=== PATIENT | male | born 1955 | race Caucasian/White ===

== ENCOUNTER 2020-04-23 11:07 | Inpatient (IN) | payer OTHER ==
[~2020-04-23] VITALS: Ht 182.9 cm; Wt 99.8 kg
--- NOTE | ~2020-04-23 | HC ---
[facility] [place] [address] [place] [address] CONSULTATION Name: SHANA RAMIREZ [facility] Room #: 439-P ADM IN M.R.#: [id number] Admission: 04/23/20 Attend Phys: Lana Ventura MD Discharge: Date of : 53 Report #: [id number] THIS REPORT FOR: cc: Barron Cadet MD, Keninde A. MD Deardorff, Valerie A. MD ~ DATE OF SERVICE: 04/24/2020 ORTHOPEDIC CONSULT NOTE REASON FOR CONSULTATION: Possible right septic elbow joint. 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 He reports on Friday about 2 a.m., waking up with right elbow pain that has progressively worsened. He denies fevers or chills. Reports it is painful to move. Denies numbness or tingling and the pain has worsened despite rest. He gives a history of a very similar episode 2-3 years ago with a sudden onset of increased pain and swelling. He had an aspiration, but did not have any surgery, was in the hospital for 4 days. Apparently, at that point, they could not figure out what was going on for the patient and he was dismissed 4 days later, but he reports at that point, his elbow was essentially normal. He denies a history of gout or any other extremity complaints. REVIEW OF SYSTEMS: MUSCULOSKELETAL: Denies other extremity complaints. NEUROLOGIC: Denies numbness or tingling. PAST MEDICAL HISTORY: Significant for hypertension, osteoarthritis. PAST SURGICAL HISTORY: Right total knee arthroplasty with some type of reconstruction, appendectomy, tonsillectomy, right thumb and index finger surgery, left total knee arthroplasty. ALLERGIES: No known drug allergies. SOCIAL HISTORY: He is right hand dominant. 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 Denies smoking or drinking alcohol. MEDICATIONS: Losartan, metoprolol, hydrocodone. LABORATORY STUDIES: Done on 04/24/2020 show white blood cell count 10.8, hemoglobin 11.3, hematocrit 34.8, platelet count 204. ESR done on 04/23/2020 is 14, INR is 1. Chemistry is grossly normal on ____ 04/23/2020 showed a CRP within normal range at 7.9. Fluid analysis from the elbow showed 23,000 white blood cell count and CPPD crystals were noted. His COVID negative. [facility] [address] [place] [address] [facility] #: [facility]-P ADM IN M.R.#: [id number] Admission: 04/23/20 Attend Phys: Lana Ventura MD Discharge: Date of : 53 Report #: [id number] PHYSICAL EXAMINATION: GENERAL: The patient is alert and oriented, interacts appropriately. He is a well-developed, well-nourished male with normal affect. He ____ conversation well and answers questions appropriately. He is in his hospital bed. VITAL SIGNS: Most recent vital signs show temperature of 37.7, respiratory rate 12, blood pressure 139/81, pulse oximetry is 96% on room air. EXTREMITIES: Examination of both upper extremities, grossly normal motor and stability and strength. Skin is clean, dry and intact with the exception of a puncture wound on the lateral aspect of his right elbow. Focused exam of the right upper extremity shows a 2+ radial pulse. No tenderness to palpation of the hand. There is moderate edema at the elbow with no erythema. It appears to be localized to the elbow joint. There is Betadine from the aspiration on the elbow. He has significant tenderness to palpation at the radiocapitellar joint. He has minimal motion. It is moderately painful. His left elbow motion is limited with approximately -20 degrees of extension. He reports this is chronic and bilateral. There is pain with elbow range of motion. RADIOGRAPHS: AP and lateral of the right elbow shows significant arthritic changes. IMPRESSION AND PLAN: Right elbow effusion and pain, most likely pseudogout given the lack of fever, lack of elevated white blood cell count, sed rate or ESR and a positive CPPD crystals in his elbow as well as a prior history of 4 days of pain with complete resolution. We will await culture results. Antibiotics are appropriate as well. Medical team may consider steroids or high dose NSAIDs. I will continue to follow along. Questions were encouraged and answered to the best of my ability. By: [id number] Cailin Jeronimo MD /nt
[~2020-04-23 11:07] MED LIST: COZAAR 25 MG TA25 M1 PO; GLUCOPHAGE XR500 MG; IBUPROFEN 600600 M1 PO; INDOMETHACIN 2525 MG PO; KEFLEX500 MG PO; LISINOPRIL10 MG PO; LOPRESSOR50 PO; NORCO 10-325 T1 EACH PO; NORCO 5-325 TA1 EACH PO
[2020-04-23 12:30] LABS: ABSOLUTE NEUTROPHILS 9.1 thou/uL (1.4-8.2); BASOPHILS 0.1 % (0.0-2.0); EOSINOPHILS 0.4 % (0.0-3.0); HEMATOCRIT 37.5 % (42.0-52.0); MCH 27.5 pg (26.0-34.0); MCHC 32.1 g/dL (28.0-37.0); MCV 85.9 fL (80.0-100.0); MONOCYTES 7.1 % (1.0-8.0); PLATELET COUNT 255 thou/uL (150-400); POLYS 82.4 % (36.0-66.0); RBC 4.37 mil/uL (4.50-6.00); RDW 14.9 % (10.5-14.5)
[2020-04-23 12:47] LABS: CALCIUM 8.6 mg/dL (8.5-10.1); CREATININE 1.1 mg/dL (0.7-1.3); POTASSIUM 4.4 mmol/L (3.5-5.1)
[2020-04-23 12:53] LABS: ALBUMIN 3.9 g/dL (3.4-5.0); TOTAL BILIRUBIN 0.4 mg/dL (0.2-1.0); TOTAL PROTEIN 7.8 g/dL (6.4-8.2)
[2020-04-23 13:44] LABS: BF CRYSTALS CPPD Crystals
[2020-04-23 13:48] LABS: BF NUCLEATED CELLS 23111 /mm3; BF RBC 2294851 /mm3
[2020-04-23 13:49] LABS: PROTIME 10.4 Seconds (9.3-11.4)
[2020-04-23 13:56] LABS: CLARITY TURBID; COLOR RED; SOURCE SYNOVIAL; TOTAL VOLUME 7 mL
[2020-04-23 15:00] LABS: BF MACROPHAGE 4 %; BF NEUTROPHILS 93 %
[2020-04-23 17:19] VITALS: BP 170/92
[2020-04-23 17:37] VITALS: BP 168/83
[2020-04-23 19:15] VITALS: BP 159/91
--- NOTE | 2020-04-23 19:17 | NUR ---
Pt came to unit from ED. Pain medicine administered. Report given to nika BAÑUELOS.
[2020-04-23 20:15] VITALS: BP 159/91
[2020-04-23 22:34] LABS: FERRITIN 24 ng/mL (26-388)
[2020-04-24 00:50] LABS: FOLIC ACID > 100.0 ng/mL (8.6-58.9)
--- NOTE | 2020-04-24 01:03 | NUR ---
PATIENT CAME UP FROM ED AT 1815 ON AM SHIFT BEFORE THIS NURSES SHIFT BEGAN. THIS NURSE TOOK ASSIGNMENT OF THIS PATIENT AT 1850. PATIENT ALERT AND ORIENTED X4. RESTING QUIETLY IN BED. MEDICATED FOR PAIN. WILL MONITOR.
[2020-04-24 03:50] VITALS: BP 139/81
--- NOTE | 2020-04-24 05:12 | NUR ---
PATIENT ALERT AND ORIENTED X4. UP TO BATHROOM W/O ASSIST, STEADY GAIT. RIGHT ELBOW SWOLLEN AND WARM TO THE TOUCH. PAINFUL AND TREATED WITH PRN PAIN MEDICATION WITH GOOD RESULTS. PATIENT ABLE TO SLEEP. IV ABX INFUSED W/O COMPLICATION. COOPERATIVE WITH CARE. WILL MONITOR.
[2020-04-24 06:03] LABS: HEMATOCRIT 34.8 % (42.0-52.0); HEMOGLOBIN 11.3 gm/dL (14.0-18.0); MCH 28.2 pg (26.0-34.0); MCHC 32.5 g/dL (28.0-37.0); MCV 86.9 fL (80.0-100.0); PLATELET COUNT 204 thou/uL (150-400); RBC 4.01 mil/uL (4.50-6.00); RDW 14.9 % (10.5-14.5); WBC 10.8 thou/uL (4.0-11.0)
[2020-04-24 06:12] LABS: CALCIUM 8.4 mg/dL (8.5-10.1); CREATININE 0.9 mg/dL (0.7-1.3); POTASSIUM 4.1 mmol/L (3.5-5.1)
[2020-04-24 08:50] LABS: ABSOLUTE NEUTROPHILS 8.2 thou/uL (1.4-8.2); PLATELET ESTIMATE NORMAL
[2020-04-24 19:23] VITALS: BP 154/94
--- NOTE | 2020-04-24 20:10 | NUR ---
PT'S 1900 ZOYSYN INFUSING AT THIS TIME 20:10 PT'S IV WAS PLACED TO LEFT FA AT THIS TIME. PT IS PLEASANT AND COOPERATIVE WITH CARE. HAS RIGHT ELBOIW HAND AND ELBOW SWELLING. CT DONE TOAY. ID DOCTOR HAS BEEN CONSULTED. PT IS ROOM AIR PT IS CONT OF B&B AND WAS GIVEN PRN PAIN MED WHEN REQUESTED. CONT ON IV ABT'S.
--- NOTE | 2020-04-25 03:17 | NUR ---
ASSUMED PT CARE AT 1900.PER REPORT,PT'S IV INFILTRATED,IV TEAM NOTIFEIED.AT 1999,IV TEAM STILL NOT UP TO REPLACE IV,THIS NURSE PUT A 22G TO PT'S LFA.P C/O PAIN,MANAGED WITH MED.PT UPSET AT ONE TIME,HE STATED THAT CALLED FOR SOMEONE TO WARM HIS COFFEE AND NO ONE SHOWED UP.HE ALSO STATED THAT HE CALLED FOR PAIN MED AND HE DID NOT RECEIVE IT.THIS NURSE EXPLAINED TO THE PT THAT SHE WAS TIED UP IN ANOTHER PT'S ROOM AT THE TIME.PT'S NEEDS MET.PT SLEEPING ON HIS BED AT THIS TIME.CALL LIGHT WITHIN REACH.
[2020-04-25 04:30] VITALS: BP 125/83
[2020-04-25 07:45] VITALS: BP 129/76
--- NOTE | 2020-04-25 12:06 | NUR ---
Assumed care of pt at 0700. Pt a&ox4. Pain controlled with prn pain meds. Up ad keri. Call light within reach. Will continue to monitor.
[2020-04-25 16:00] VITALS: BP 132/72
--- NOTE | 2020-04-25 16:06 | NUR ---
ASSESSMENT: CM REVIEWED CHART AND SPOKE WITH PATIENT. PT IS ALERT AND ORIENTED X4. PT LIVES IN A HOUSE WITH HIS . PT WAS ADMITTED DUE TO ELBOW JOINT PAIN AND SWELLING. PT REPORTS HE HAS ONE STEP TO ENTER THE HOME AND EVERYTHING HE NEEDS IS ON THE MAIN LEVEL. PT REPORTS BEING INDEPENDENT WITH ADLS AND AMBULATION. PT REPORTS HE HAS HAD HH IN THE PAST HE THINKS BUT UNSURE THE AGENCY. PT IS CURRENTLY ON IV STEROIDS. CM WILL CONTINUE TO FOLLOW TO ASSIST NEEDED.
[2020-04-25 20:19] VITALS: BP 130/75
--- NOTE | 2020-04-26 01:25 | NUR ---
ASSESSED AT START OF SHIFT 1900. PT A&OX4 RATES RT ELBOW PAIN 01/20 MANAGED WITH HYDROCODONE. IV INTACT AND SL. IV STERIOD STARTED. PT UP ADLIB. URINAL AT BEDSIDE. CALL LIGHT AT REACH WILL CONT WITH POC TILL EOS.
[2020-04-26 07:40] VITALS: BP 147/99
[2020-04-26] MEDS ORDERED: MEDROLDOSEPACK PO (11:10)
[2020-04-26] MEDS ORDERED: IBUPROFEN 400400 M2 PO (11:10)
[2020-04-26] MEDS ORDERED: MIRALAX17 GM PO (11:10)
--- NOTE | 2020-04-26 11:20 | NUR ---
on-going assessment: CM REVIEWED CHART. PT HAS ORDERS TO DISCHARE HOME TODAY WITH NO NEEDS. CASE CLOSED.
[2020-04-26 11:24] VITALS: BP 147/99
--- NOTE | 2020-04-26 11:55 | NUR ---
Assumed care of pt. at 0700. Pt. is calm and cooperative. Pt. complains of no pain and is happy to be discharging. Discharge orders recieved, discharge education given. Pt. left unit with all belongings and .
== END 2020-04-26 11:47 | disposition home or self-care (01) | DRG 549 ==
LOC: ER 11:07 → 4S 15:52 → EROBS 15:52 → 4S 18:01
PROVIDERS: Emergency Medicine; ADMIT Internal Medicine; ATTEND Internal Medicine
PROC: 0R9L3ZZ Drainage of Right Elbow Joint, Percutaneous Approach (ICD-10-PCS; principal; 2020-04-23)
DX: M00.9 Pyogenic arthritis, unspecified (principal); E87.1 Hypo-osmolality and hyponatremia; M25.421 Effusion, right elbow; M06.4 Inflammatory polyarthropathy; M10.9 Gout, unspecified; Z20.828 Contact with and (suspected) exposure to other viral communicable diseases; I10 Essential (primary) hypertension; G89.4 Chronic pain syndrome; Z96.651 Presence of right artificial knee joint; E78.5 Hyperlipidemia, unspecified; R73.9 Hyperglycemia, unspecified; M19.041 Primary osteoarthritis, right hand; M19.021 Primary osteoarthritis, right elbow; Z90.49 Acquired absence of other specified parts of digestive tract; Z83.6 Family history of other diseases of the respiratory system; Z79.899 Other long term (current) drug therapy
CPT/HCPCS: 10195